=== PATIENT | male | born 1985 | race Caucasian/White ===

== ENCOUNTER 2016-07-18 05:21 | Emergency (ER) | payer OTHER ==
[~2016-07-18] VITALS: Ht 190.5 cm; Wt 90.9 kg
[2016-07-18 05:42] VITALS: BP 134/82; PULSE 105; RESP 16; O2SAT 99
--- NOTE | 2016-07-18 06:58 | ED.REPORT ---
HPI-General Illness Date of Service Jul 18, 2016 ED Provider: Nash Andino MD The pt is 31 y/o male presenting to the ED seeking help detoxing from opiates.He is flying to [place] tomorrow at 0600 and has been attempting to stop using for the last week and reports not experiencing any symptoms of withdrawal. The pt has been injecting daily for the last year but takes no other medications on a regular basis. He last used at 0200 this morning. Suboxone has worked in the past when he has attempted to detox. His R hand is also numb but he is still able to flex at his wrist. Denies fever. Nursing Notes Stated Complaint: HEROIN WITHDRAWAL Chief Complaint: Substance Abuse Nursing Notes Reviewed: Yes (Embarkly not reconciled) Allergies: Coded Allergies: No Known Allergies (Unverified , 07/18/16) Scheduled Clonidine (Clonidine) 0.1 Mg Tablet 0.1-0.2 MG PO TID Scheduled PRN Ibuprofen (Ibuprofen) 800 Mg Tablet 800 MG PO TID PRN PRN For Pain Loperamide (Loperamide) 2 Mg Tablet 2 MG PO Q4H PRN PRN For Diarrhea or Loose Stool Take 2 tabs to start, then one tab after each loose stool up to 6 tabs in a 24-hour period Ondansetron ODT (Ondansetron ODT) 8 Mg Tab.rapdis 8 MG PO Q4H PRN PRN For Nausea Prochlorperazine Maleate (Prochlorperazine) 10 Mg Tablet 10 MG PO Q6H PRN PRN For Nausea/Vomiting hydrOXYzine Hcl (HydrOXYzine Hcl) 25 Mg Tablet 25-50 MG PO TID PRN PRN For Anxiety General Time Seen by MD: 06:56 Chief Complaint Other (Detox) Hx Obtained From: Patient Arrived By: Walk-in Sudden in Onset?: No Recent Healthcare: No recent doctor visit, No recent hospitalization Similar Sx Previous: Yes Past Medical History Past Medical History IVDA Past Surgical History None reported Smoking History Current Every Day Smoker Social History Drug Use: IV drugs, Other (heroin) Ambulatory Status Independent Review of Systems Full Review of Systems Constitutional: Denies: Fever Neurologic: Reports: Numbness (R hand ) Complete sys rev & neg: except as marked. Physical Exam Vital Signs Vital Signs Date Time Temp Pulse Resp B/P Pulse Ox O2 Delivery O2 Flow Rate FiO2 6/11/17 05:42 36.1 105 16 134/82 99 Room Air Initial VS: Reviewed, Vital signs abnormal (HR 105) General/Constitutional: Awake, Alert Slightly drowsy Does not appear in withdrawal Head / Eyes: Atraumatic, Normocephalic ENT: Atraumatic, Airway patent Neck: Atraumatic, Full range of motion Respiratory / Chest: Atraumatic, Breath sounds NL, Breath sounds = bilat, No respiratory distress, No rales, No rhonchi, No wheezing Cardiovascular: Regular rhythm, Heart sounds NL, No murmurs Heart Rate / Rhythm: Positive: Tachycardia (Low grade ) Abdomen: Atraumatic, Soft, Non-tender Back: Atraumatic, Inspection NL Skin: Color NL, Warm, Dry Track le all over arms but no signs of infections Re-Eval/Medical Decision Med Decision/Clinical Course This is a 36-year-old male presents requesting assistance to help detox from heroin. The patient reports he is interested in Suboxone, he has been on it previously and it is helped. He has been using heroin daily for the past year, and is due to get on a plane to go up and finish on an [facility] vessel-flying out in the morning. He used heroin before coming in, is not currently having active withdrawal. The patient has multiple track le. He has mild findings of intoxication was a little bit of slowness and drowsiness, but shows no signs of respiratory depression, slurred speech, or shefali altered mental status, and appears to have adequate decisional capacity. I have consult the HOME HEALTH ASSISTANT is initial attempts are trying to find if there is any availability of a Suboxone subscriber they might be willing to evaluate him for possible course of Suboxone to take with him. However prescribe her today in the [facility] emergency Department, the HOME HEALTH ASSISTANT's also called around to try and find if there are any other options as the weekend, normal practice with the provide a single dose of Suboxone and then refer her to outpatient follow-up with ideal option. Given that as it stands the patient's plane and fly to [place] tomorrow, and I do not have any alternates-I have gone ahead and written a prescription course of clonidine, prochlorperazine, hydroxyzine, ondansetron, ibuprofen, and Imodium. I have offered a single dose of Suboxone as he starts to develop withdrawal. the patient is discharged in stable condition. Routine precautions reviewed Source of Hx: Old records Counseled Regarding: Diagnosis, Need for follow-up, When/why to return to ED Discharge & Departure Primary Impression: Substance abuse Disposition: Home Discharge Condition All VS Reviewed: Yes Condition: Stable Referrals: NOPCP (PCP) [facility] Scribe Attestation Portions of this note were transcribed by Benjy Morel. I, Dr. Andino personally performed the history, physical exam and medical decision-making; I reviewed and confirmed the accuracy of the information in the transcribed note. Signed by : Getachew Vazquez, 07/18/16 and 0954. copies to: [facility] Nash Andino MD Jul 18, 2016 06:58 Benjy Morel Jul 18, 2016 09:49
[2016-07-18] MEDS ORDERED: CLON0.1T PO (10:44)
[2016-07-18] MEDS ORDERED: HYDR-656 PO (10:44)
[2016-07-18] MEDS ORDERED: ONDA8TAB10 PO (10:44)
[2016-07-18] MEDS ORDERED: PROC10TA PO (10:44)
[2016-07-18] MEDS ORDERED: IBUP800T28 PO (10:44)
[2016-07-18] MEDS ORDERED: Buprenorphine 2 mg SL Tablet SL ONE (10:45)
[2016-07-18] MEDS ORDERED: LOPE2TAB32 PO (10:55)
== END 2016-07-18 11:12 | disposition home or self-care (01) ==
LOC: SED 05:21
DX: F11.10 Opioid abuse, uncomplicated (principal); R20.0 Anesthesia of skin; F17.200 Nicotine dependence, unspecified, uncomplicated

== ENCOUNTER 2016-07-22 02:05 | Emergency (ER) | payer OTHER ==
[~2016-07-22] VITALS: Ht 188 cm; Wt 95.4 kg
[~2016-07-22 02:05] MED LIST: CLON0.1T PO; HYDR-656 PO; IBUP800T28 PO; LOPE2TAB32 PO; ONDA8TAB10 PO; PROC10TA PO
[2016-07-22 02:09] VITALS: BP 129/85; PULSE 106; RESP 16; O2SAT 99
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
[2016-07-22 03:32] VITALS: BP 118/68; PULSE 72; RESP 12; O2SAT 99
== END 2016-07-22 03:15 | disposition home or self-care (01) ==
LOC: SED 02:05
DX: F11.23 Opioid dependence with withdrawal (principal); F17.200 Nicotine dependence, unspecified, uncomplicated